=== PATIENT | male | born 1935 | race Caucasian/White ===

== ENCOUNTER 2017-03-31 14:58 | Emergency (ER) | payer MEDICARE, OTHER ==
[~2017-03-31] VITALS: Ht 185.4 cm; Wt 78.6 kg
[~2017-03-31 14:58] MED LIST: AMIT50TA3 PO; APIX5TAB PO; ARIC10TA PO; ASPI81TA16 PO; B-CO1TAB5 PO; CALC600T5 PO; COLA100C3 PO; DAKINSHST TOPICAL; DOXY100C PO; FLUD.1 PO; FOSA70TA PO; GARL1CAP PO; HYDR-3533 PO; KETO2CRE TOPICAL; LIPI10TA PO; NEUR300C PO; NYST1OIN TOPICAL; OMEG5CAP PO; ONETAB9 PO; TYLE650T9 PO; VITA200012 PO; ZANT150T2 PO
[2017-03-31 15:07] VITALS: BP 137/61; PULSE 68; RESP 18; TEMP 98.2; O2SAT 97
[2017-03-31] MEDS ORDERED: TEMA7.5C PO (15:38)
[2017-03-31] MEDS ORDERED: RAMI5CAP PO (15:38)
[2017-03-31] MEDS ORDERED: SIMV20TA PO (15:38)
[2017-03-31] MEDS ORDERED: TAMS0.4C4 PO (15:38)
[2017-03-31] MEDS ORDERED: METO1TAB42 PO (15:38)
[2017-03-31] MEDS ORDERED: RANI150T PO (15:38)
[2017-03-31] MEDS ORDERED: DONE10TA7 PO (15:38)
[2017-03-31] MEDS ORDERED: BUSP10TA PO (15:38)
[2017-03-31] MEDS ORDERED: VANCOMYCIN INJ 1,200 MG in SODIUM CHLOR 0.9% 250 ML INJ 250 ML IV ONE (16:00)
[2017-03-31] MEDS ORDERED: PIPERACIL-TAZO 2.25 GM PREMIX 50 ML IV ONE (16:00)
--- NOTE | 2017-03-31 16:02 | RADRPT ---
EXAM DATE/TIME: 03/31/2017 15:50 [facility] COMPARISON: No previous studies available for comparison. INDICATIONS : Open sore on dorsal surface of right foot for 1 week MEDICAL HISTORY : None. SURGICAL HISTORY : ORIF right fibula ENCOUNTER: Initial ACUITY: 1 week PAIN SCORE: 3/10 LOCATION: Right dorsal surface of foot FINDINGS: Soft tissue irregularity overlying the dorsal midfoot. Osseous structures appear intact without evide nce for fracture or focal bony destruction. Fixation hardware is noted in the distal fibula. Hardware appears grossly intact. Joint spaces are maintained. Plantar calcaneal spurring. CONCLUSION: 1. Soft tissue irregularity overlying the dorsal midfoot corresponding to clinical history of open so re. Underlying osseous structures appear intact without fracture or erosive change. No radiopaque for eign bodies or subcutaneous case emphysema. Zackery Rivera MD on March 31, 2017 at 15:58 Board Certified Radiologist. This report was verified electronically.
--- NOTE | 2017-03-31 16:19 | PD ---
HPI Chief Complaint: Skin Problem Time Seen by Provider: 15:12 Travel History International Travel<30 days: No Contact w/Intl Traveler<30days: No Traveled to known affect area: No History of Present Illness HPI 81yo M with PE/DVT s/p IVC filter and on eliquis, CAD, cardiomyopathy, HTN, prostate CA was sent here by his wound care physician Dr. Barlow for IV antibiotics. Pt has had a wound on the lateral aspect of his right foot for a long time and has been following wound care. However, he started having a wound on the dorsal aspect of his right foot that is new for the last few days. Pt has increased pain and swelling and surrounding erythema around this new wound. He said that he saw him this morning and he was concern and wanted IV antibiotics. Said that he is noncompliant and felt that it would be best to admit him for IV antibiotics especially with Thankgiving being tomorrow and he lives alone. However, pt has not been prescribed oral antibiotics. Pt denies any fever, chest pain, sob, n/v, abdominal pain, focal weakness or numbness or trauma. PFSH Past Medical History Hx Anticoagulant Therapy: Yes (elaquis) Cancer: Yes (prostate ) Cardiac Catheterization: Yes Cardiovascular Problems: No High Cholesterol: Yes Dementia: Yes Diabetes: No Endocrine: No Gastrointestinal Disorders: No GERD: Yes Glaucoma: No Genitourinary: No Hepatitis: No Hiatal Hernia: No Hypertension: Yes Medical other: No Psychiatric: No Reproductive: No Respiratory: No Thyroid Disease: No Past Surgical History Cholecystectomy: Yes (possible, not sure) Pacemaker: No Other Surgery: Yes (bypass surgery bilateral lower extremities) Social History Alcohol Use: No Tobacco Use: No Substance Use: No Allergies-Medications (Allergen,Severity, Reaction): Coded Allergies: No Known Allergies (Unverified Adverse Reaction, Unknown, 03/31/17) Reported Meds & Prescriptions Reported Meds & Active Scripts Active Tylenol (Acetaminophen) 325 Mg Tab 325 Mg PO Q4H PRN Augmentin (Amoxicillin-Clavulanate) 875-125 Mg Tab 1 Tab PO BID 7 Days Reported Simvastatin 20 Mg Tab 20 Mg PO DAILY Donepezil 10 Mg Tab 10 Mg PO HS Ranitidine (Ranitidine HCl) 150 Mg Tab 150 Mg PO BID Temazepam 7.5 Mg Cap 7.5 Mg PO HS PRN Buspirone (Buspirone HCl) 10 Mg Tab 10 Mg PO BID Metoprolol Succinate ER 24 HR (Metoprolol Succinate) 25 Mg Tab 25 Mg PO DAILY Tamsulosin (Tamsulosin HCl) 0.4 Mg Cap 0.4 Mg PO HS Ramipril 5 Mg Cap 5 Mg PO DAILY PRN One Daily For Men 50+ Adv (Multiple Vitamins W/ Minerals) 1 Tab Tab 1 Tab PO DAILY Calcium (Calcium Carbonate) 600 Mg Tab 600 Mg PO BID Aspirin Adult Low Strength (Aspirin) 81 Mg Tabdr 81 Mg PO DAILY Eliquis (Apixaban) 5 Mg Tab 5 Mg PO Q12HR Neurontin (Gabapentin) 300 Mg Cap 300 Mg PO HS Fosamax (Alendronate Sodium) 70 Mg Tab 70 Mg PO WEEKLY Zantac (Ranitidine HCl) 150 Mg Tab 150 Mg PO BID Review of Systems Except as stated in HPI: all other systems reviewed are Neg Physical Exam Narrative GENERAL: 81yo M not in distress. SKIN: Focused skin assessment warm/dry. HEAD: Atraumatic. Normocephalic. EYES: Pupils equal and round. No scleral icterus. No injection or drainage. CARDIOVASCULAR: Regular rate and rhythm. No murmur appreciated. RESPIRATORY: No accessory muscle use. Clear to auscultation. Breath sounds equal bilaterally. GASTROINTESTINAL: Abdomen soft, non-tender, nondistended. MUSCULOSKELETAL: RLE: DP 2+. +1.5cm by 1.5cm wound 3rd MTP. Sensation intac.t +Edema. Mild erythema in medial tibia as well. NEUROLOGICAL: Awake and alert. No obvious cranial nerve deficits. Motor grossly within normal limits. Normal speech. PSYCHIATRIC: Appropriate mood and affect; insight and judgment normal. Data Data Last Documented VS Vital Signs Date Time Temp Pulse Resp B/P (MAP) Pulse Ox O2 Delivery O2 Flow Rate FiO2 03/31/17 17:37 60 15 135/65 (88) 100 Room Air 03/31/17 16:33 97.5 Orders Orders Basic Metabolic Panel (Bmp) (03/31/17 15:33) Complete Blood Count With Diff (03/31/17 15:33) Blood Culture (03/31/17 15:33) Lactic Acid Sepsis Protocol (03/31/17 15:33) Foot, Limited (2vws) (03/31/17 ) [place]gren Sedimentation Rate (03/31/17 15:43) C-Reactive Protein (Crp) (03/31/17 15:43) Vancomycin Inj (Vancomycin Inj) (03/31/17 16:00) Piperacil-Tazo 2.25 Gm Premix (Zosyn 2.2 (03/31/17 16:00) Ketorolac Inj (Toradol Inj) (03/31/17 16:30) Us Leg Venous Doppler (03/31/17 ) Acetamin-Hydrocod 325-5 Mg ([facility] 5-325 (03/31/17 17:45) Labs Laboratory Tests Test 03/31/17 16:22 03/31/17 16:25 Lactic Acid Level 1.4 mmol/L White Blood Count 5.4 TH/MM3 Red Blood Count 3.44 MIL/MM3 Hemoglobin 11.1 GM/DL Hematocrit 34.2 % Mean Corpuscular Volume 99.3 FL Mean Corpuscular Hemoglobin 32.2 PG Mean Corpuscular Hemoglobin Concent 32.4 % Red Cell Distribution Width 13.8 % Platelet Count 164 TH/MM3 Mean Platelet Volume 8.6 FL Neutrophils (%) (Auto) 63.9 % Lymphocytes (%) (Auto) 14.3 % Monocytes (%) (Auto) 14.5 % Eosinophils (%) (Auto) 6.4 % Basophils (%) (Auto) 0.9 % Neutrophils # (Auto) 3.4 TH/MM3 Lymphocytes # (Auto) 0.8 TH/MM3 Monocytes # (Auto) 0.8 TH/MM3 Eosinophils # (Auto) 0.3 TH/MM3 Basophils # (Auto) 0.0 TH/MM3 CBC Comment DIFF FINAL Differential Comment Blood Urea Nitrogen 29 MG/DL Creatinine 1.50 MG/DL Random Glucose 95 MG/DL Calcium Level 8.2 MG/DL Sodium Level 142 MEQ/L Potassium Level 4.0 MEQ/L Chloride Level 110 MEQ/L Carbon Dioxide Level 24.1 MEQ/L Anion Gap 8 MEQ/L Estimat Glomerular Filtration Rate 45 ML/MIN [facility] Medical Decision Making Medical Screen Exam Complete: Yes Emergency Medical Condition: Yes Differential Diagnosis Cellulitis vs. osteomyelitis vs. DVT Narrative Course 81yo M was sent here by wound care physician for admission for IV antibiotics. Pt is well appearing and has not started any oral antibiotics as an outpatient. I did discuss case with Dr. Barlow. He left his cell phone number and office [phone]. He wanted broad coverage for antibiotics that includes gram negative as well as gram positive. No fever or tachycardia here. Xray right foot showed soft tissue irregularity overlying dorsal midfoot corresponding to clinical history of open sore. Underlying osseous structures appear intact without fracture or erosive change. No radiopaque foreign bodies or subcutaneous case emphysema. Labs reviewed, no leukocytosis. H/H low at 11.1/34.2 which is baseline. Lactic acid normal at 1.4. BUN/creatinine mildly elevated at 29/1.5, pt has history of CKD. Pt is nontoxic appearing and has no systemic symptoms. Pt given toradol and lortab with improvement of pain. I called Dr. Barlow back after results and informed him that his daughter is going to stay with him throughout the holiday and weekend. He said that he was really more worried that he will be alone and if daughter will be with him, then feels reassured to have pt try outpatient antibiotics first. Patient and daughter said they have the topical medications for wound care and know how to use it. Will give augmentin for expanded coverage. Strict return precautions given. Diagnosis Primary Impression: Cellulitis Qualified Codes: L03.115 - Cellulitis of right lower limb Patient Instructions: General Instructions Departure Forms: Tests/Procedures Additional Instructions: Please follow up with your wound care physician in 3-7 days. Return to the ED in 2 days if you have fever, nausea, vomiting, worsening pain or infection. Med/Other Pt SpecificInfo: Prescription(s) given Scripts Acetaminophen (Tylenol) 325 Mg Tab 325 MG PO Q4H Y for PAIN SCALE 1 TO 4, #20 TAB 0 Refills Prov: Flower Corado DO 03/31/17 Amoxicillin-Clavulanate (Augmentin) 875-125 Mg Tab 1 TAB PO BID for Infection for 7 Days, #14 TAB 0 Refills Prov: Flower Corado DO 03/31/17 Disposition: 01 DISCHARGE HOME Condition: Stable Flower Corado DO Mar 31, 2017 16:19
[2017-03-31] MEDS ORDERED: KETOROLAC TROMETHAMINE 30 MG/ML (IVP) VIAL IV PUSH ONE (16:30)
[2017-03-31 16:33] VITALS: BP 126/64; PULSE 61; RESP 17; TEMP 97.5; O2SAT 98
[2017-03-31 16:46] LABS: AUTOMATED NEUTROPHIL # 3.4 TH/MM3 (1.8-7.7); BASOPHIL % 0.9 % (0.0-2.0); EOSINOPHIL # 0.3 TH/MM3 (0-0.4); EOSINOPHIL % 6.4 % (0.0-4.0); HEMATOCRIT 34.2 % (39.0-51.0); HEMO FLAGS DIFF FINAL; LYMPH % 14.3 % (9.0-44.0); LYMPHOCYTE # 0.8 TH/MM3 (1.0-4.8); MEAN CELL VOLUME 99.3 FL (80.0-100.0); MEAN CORPUSCULAR HEMOGLOBIN 32.2 PG (27.0-34.0); MEAN CORPUSCULAR HGB CONC 32.4 % (32.0-36.0); MONO % 14.5 % (0.0-8.0); NEUT % 63.9 % (16.0-70.0); PLATELET COUNT 164 TH/MM3 (150-450); RED BLOOD COUNT 3.44 MIL/MM3 (4.50-5.90); RED CELL DISTRIBUTION WIDTH 13.8 % (11.6-17.2); WHITE BLOOD COUNT 5.4 TH/MM3 (4.0-11.0)
--- NOTE | 2017-03-31 17:26 | RADRPT ---
EXAM DATE/TIME: 03/31/2017 17:06 [facility] COMPARISON: No previous studies available for comparison. INDICATIONS : Right foot infection. MEDICAL HISTORY : Hypercholesterolemia. Hypertension. Gastroesophageal reflux disease. Dementia. Anticoagulant ther apy, elaquis. Carcinoma, prostate. SURGICAL HISTORY : Cholecystectomy. Cardiac catheterization. Cardiac bypass surgery. ENCOUNTER: Initial ACUITY: 4 - 6 days PAIN SCORE: 6/10 LOCATION: Right leg. TECHNIQUE: Venous ultrasound of the leg was performed from the inguinal ligament to the proximal calf. Real-ben e, color Doppler and spectral tracing, compression and augmentation techniques were used. FINDINGS: There is normal compressibility of the deep venous system from the inguinal region to the proximal ca lf. No echogenic clot is seen in the lumen of the common femoral, femoral, popliteal, and posterior tibial veins. There is a normal response of the venous system to proximal and distal augmentation an d respiration. CONCLUSION: Normal examination. Sandeep Martinez MD on March 31, 2017 at 17:24 Board Certified Radiologist. This report was verified electronically.
[2017-03-31 17:37] VITALS: BP 135/65; PULSE 60; RESP 15; O2SAT 100
[2017-03-31] MEDS ORDERED: ACETAMINOPHEN/HYDROcodone 325 MG/5 MG TAB PO ONE (17:45)
[2017-03-31] MEDS ORDERED: TYLE325T PO (18:18)
[2017-03-31] MEDS ORDERED: AUGM875T3 PO (18:18)
[2017-03-31 18:22] LABS: BICARBONATE 24.1 MEQ/L (21.0-32.0)
[2017-03-31 18:51] VITALS: BP 149/71; PULSE 57; RESP 16; O2SAT 100
== END 2017-03-31 19:29 | disposition home or self-care (01) ==
LOC: PHED 14:58
DX: L03.115 Cellulitis of right lower limb (principal); I25.10 Atherosclerotic heart disease of native coronary artery without angina pectoris; I42.9 Cardiomyopathy, unspecified; I10 Essential (primary) hypertension; E78.00 Pure hypercholesterolemia, unspecified; F03.90 Unspecified dementia, unspecified severity, without behavioral disturbance, psychotic disturbance, mood disturbance, and anxiety; Z85.46 Personal history of malignant neoplasm of prostate; Z91.19 Patient's noncompliance with other medical treatment and regimen; Z79.01 Long term (current) use of anticoagulants; Z79.899 Other long term (current) drug therapy
CPT/HCPCS: 73620; 80048; 83605; 85025; 85652; 86140; 87040; 93971; 96365; 96368; 96375; 99285; J1885; J2543; J3370; J7050